=== PATIENT | male | born 1995 | race African-American/Black ===

== ENCOUNTER 2020-07-20 12:15 | Emergency (ER) | payer OTHER ==
[~2020-07-20] VITALS: Ht 193 cm; Wt 116.5 kg
[2020-07-20 12:16] VITALS: BP 133/82
== END 2020-07-20 13:01 | disposition home or self-care (01) ==
LOC: M ED 12:15
DX: Z20.828 Contact with and (suspected) exposure to other viral communicable diseases (principal)

== ENCOUNTER 2020-09-13 07:13 | Emergency (ER) | payer OTHER ==
[~2020-09-13] VITALS: Ht 195.6 cm; Wt 112.6 kg
[2020-09-13 07:18] VITALS: BP 141/82
[2020-09-13] MEDS ORDERED: MOBI4TAB PO (07:55)
== END 2020-09-13 08:04 | disposition home or self-care (01) ==
LOC: M ED 07:13
DX: S83.92XA Sprain of unspecified site of left knee, initial encounter (principal); X58.XXXA Exposure to other specified factors, initial encounter; Y92.89 Other specified places as the place of occurrence of the external cause; Y93.89 Activity, other specified; Y99.1 Military activity